=== PATIENT | female | born 1950 | race Caucasian/White ===

== ENCOUNTER 2022-06-16 12:18 | Emergency (ER) | payer MEDICAID, MEDICARE ==
[~2022-06-16] VITALS: Ht 162.6 cm; Wt 127.9 kg
--- NOTE | 2022-06-16 13:23 | NUR ---
BIB [facility] FROM HOME, UNABLE TO GET DIALYSIS TODAY SINCE INSURANCE WON'T COVER IT,LAST HD WAS 06/12/2022, PT HAS PORT ACCESS TO R CHEST. PT ATTACHED TO MONITOR, VITALS WITHIN NORMAL LIMITS, NO RESPIRATORY DISTRESS NOTED. AWAITING MD ORDERS.
--- NOTE | 2022-06-16 14:06 | NUR ---
IV ESTABLISHED RHAND 20G. LABS DRAWN AND COLLECTED AT BEDSIDE
[2022-06-16 14:25] LABS: BASOPHILS % (AUTO) 0.5 % (0.0-2.0); EOSINOPHILS % (AUTO) 1.8 % (0.0-6.0); HEMATOCRIT 25 % (33-45); HEMOGLOBIN 8.3 g/dL (11.5-14.8); LYMPHOCYTES # (AUTO) 2.3 K/uL (0.8-4.8); LYMPHOCYTES % (AUTO) 32.5 % (20.0-44.0); MEAN CORPUSCULAR HGB CONC 33 g/dl (31.0-36.0); MEAN CORPUSCULAR VOLUME 106 fL (82-100); MONOCYTES # (AUTO) 0.6 K/uL (0.1-1.30); MONOCYTES % (AUTO) 7.8 % (2.0-12.0); NEUTROPHILS # (AUTO) 4.1 K/uL (1.8-8.9); NEUTROPHILS % (AUTO) 57.4 % (43.0-81.0); PLATELET COUNT (AUTO) 280 K/uL (150-450); RED BLOOD CELL COUNT(AUTO) 2.37 MIL/uL (4.0-5.2); WHITE BLOOD COUNT (AUTO) 7.1 K/uL (4.3-11.0)
[2022-06-16 15:12] LABS: ALANINE AMINOTRANSFERASE 13 U/L (12-78); ALKALINE PHOSPHATASE 95 U/L (46-116); ASPARTATE AMINOTRANSFERASE 18 U/L (15-37); BILIRUBIN,DIRECT 0.1 mg/dL (0.0-0.2); BILIRUBIN,TOTAL 0.2 mg/dL (0.2-1.0); CALCIUM, SERUM 8.3 mg/dL (8.5-10.1); CARBON DIOXIDE 29 mmol/L (21-32); CHLORIDE 107 mmol/L (98-107); CREATININE 2.3 mg/dL (0.6-1.3); GLUCOSE 163 mg/dL (74-106); POTASSIUM 3.9 mmol/L (3.5-5.1); SODIUM SERUM 141 mmol/L (136-145); TOTAL PROTEIN, SERUM 6.7 g/dL (6.4-8.2); UREA NITROGEN, BLOOD 35 mg/dL (7-18)
[2022-06-16] MEDS ORDERED: SITA100T PO (15:37)
[2022-06-16] MEDS ORDERED: SUMA100T16 PO (15:37)
[2022-06-16] MEDS ORDERED: AMLO-212 PO (15:37)
[2022-06-16] MEDS ORDERED: IPRA12.9 INH (15:37)
[2022-06-16] MEDS ORDERED: INSU100I26 SQ (15:37)
[2022-06-16] MEDS ORDERED: HYDR-3972 PO (15:37)
[2022-06-16] MEDS ORDERED: HEPA50008 SQ (15:37)
[2022-06-16] MEDS ORDERED: HYDR-4076 PO (15:37)
[2022-06-16] MEDS ORDERED: PANT40TA49 PO (15:37)
[2022-06-16] MEDS ORDERED: METO25TA4 PO (15:37)
[2022-06-16] MEDS ORDERED: ATOR40TA PO (15:37)
[2022-06-16] MEDS ORDERED: DOCU-141 PO (15:37)
[2022-06-16] MEDS ORDERED: INSU100I47 SQ (15:37)
[2022-06-16] MEDS ORDERED: ALBU18HF2 IH (15:37)
--- NOTE | 2022-06-16 16:23 | NUR ---
[facility] CALLED FOR TRANSPORT, ETA 9PM
--- NOTE | 2022-06-16 16:25 | NUR ---
[facility] [phone]) [phone] TO LET THEM KNOW PT [place] [id number] [facility] [id number]
--- NOTE | 2022-06-16 16:32 | NUR ---
[facility]SPORTATION WILL BE HER BETWEEN 90-120 MINUTES
[2022-06-16 17:12] LABS: BAND % (MANUAL) 1 % (0.0-5.0); EOSINOPHILS % (MANUAL) 1 % (0-4); LYMPHOCYTES % (MANUAL) 24 % (16-48); MONOCYTES % (MANUAL) 6 % (0-11.0); NEUTROPHILS % (MANUAL) 68 (42-76)
[2022-06-17 03:59] VITALS: BP 121/71
== END 2022-06-16 19:00 ==
LOC: ER 12:22
DX: I12.0 Hypertensive chronic kidney disease with stage 5 chronic kidney disease or end stage renal disease (principal); E11.22 Type 2 diabetes mellitus with diabetic chronic kidney disease; N18.6 End stage renal disease; Z99.2 Dependence on renal dialysis; Z91.15 Patient's noncompliance with renal dialysis; R06.02 Shortness of breath; Z20.822 Contact with and (suspected) exposure to COVID-19
CPT/HCPCS: 99285; 71045; 87426; 93005; 85025; 80048; 80076; 36415; 84484; 83880; 82962; 85007; C9803

== ENCOUNTER → 2024-12-20 | Emergency (ER) | payer MEDICARE, OTHER ==
[~2024-12-20] VITALS: Ht 162.6 cm; Wt 127.9 kg
[~2024-12-20] MED LIST: ALBU18HF2 IH; AMLO-212 PO; ATOR40TA PO; DOCU-141 PO; HEPA50008 SQ; HYDR-3972 PO; HYDR-4076 PO; INSU100I26 SQ; INSU100I47 SQ; IPRA12.9 INH; METO25TA4 PO; ONDANSETRON HCL/PF 4 MG/2 ML VIAL ONE; PANT40TA49 PO; POLY17PO4 PO; SITA100T PO; SUMA100T16 PO
[2024-12-20 02:17] VITALS: TEMP 98.3
[2024-12-20 04:06] LABS: BASOPHILS % (AUTO) 0.3 % (0.0-2.0); EOSINOPHILS # (AUTO) 0.2 K/uL (0.0-0.7); HEMATOCRIT 32 % (33-45); HEMOGLOBIN 10.7 g/dL (11.5-14.8); LYMPHOCYTES % (AUTO) 24.3 % (20.0-44.0); MEAN CORPUSCULAR HEMOGLOBIN 32 PG (26.0-33.0); MEAN CORPUSCULAR HGB CONC 33 g/dl (31.0-36.0); MEAN CORPUSCULAR VOLUME 98 fL (82-100); MONOCYTES # (AUTO) 0.5 K/uL (0.1-1.30); MONOCYTES % (AUTO) 6.1 % (2.0-12.0); NEUTROPHILS # (AUTO) 5.5 K/uL (1.8-8.9); NEUTROPHILS % (AUTO) 66.3 % (43.0-81.0); PLATELET COUNT (AUTO) 251 K/uL (150-450); RED BLOOD CELL COUNT(AUTO) 3.32 MIL/uL (4.0-5.2); RED CELL DISTRIBUTION WIDTH 14.4 % (11.5-15.0); WHITE BLOOD COUNT (AUTO) 8.3 K/uL (4.3-11.0)
[2024-12-20 04:18] LABS: CALCIUM, SERUM 8.5 mg/dL (8.5-10.1); CREATININE 4.3 mg/dL (0.6-1.3); POTASSIUM 4.2 mmol/L (3.5-5.1)
[2024-12-20 04:30] LABS: ALBUMIN 2.5 g/dL (3.4-5.0); BILIRUBIN,TOTAL 0.3 mg/dL (0.2-1.0); TOTAL PROTEIN, SERUM 6.9 g/dL (6.4-8.2)
[2024-12-20] MEDS: ONDANSETRON HCL/PF - ER 4 MG/2 ML VIAL IV ONE (05:59)
[2024-12-20] MEDS: MORPHINE SULFATE INJ 2 MG/ML DISP.SYRIN IV ONE (05:59)
[2024-12-20 08:25] VITALS: BP 116/82; O2SAT 96
== END | disposition home or self-care (01) ==
LOC: ER 02:24
DX: R10.9 Unspecified abdominal pain (principal); R30.0 Dysuria; I12.0 Hypertensive chronic kidney disease with stage 5 chronic kidney disease or end stage renal disease; E11.22 Type 2 diabetes mellitus with diabetic chronic kidney disease; N18.6 End stage renal disease; Z79.84 Long term (current) use of oral hypoglycemic drugs; Z79.899 Other long term (current) drug therapy; Z90.49 Acquired absence of other specified parts of digestive tract; Z99.2 Dependence on renal dialysis
CPT/HCPCS: 99285; 74176; 71045; 93005; 85025; 87040; 83690; 36415; 80053; 84484; 83880; J2405 ×2

== ENCOUNTER 2024-12-26 19:41 | Emergency (ER) | payer MEDICARE, OTHER ==
[~2024-12-26] VITALS: Ht 172.7 cm; Wt 99.8 kg
[~2024-12-26 19:41] MED LIST changes: -ONDANSETRON HCL/PF 4 MG/2 ML VIAL ONE
[2024-12-26 19:48] VITALS: BP 92/50; TEMP 98.6; O2SAT 97
[2024-12-26 20:16] LABS: BASOPHILS # (AUTO) 0.1 K/uL (0.0-0.2); BASOPHILS % (AUTO) 0.6 % (0.0-2.0); EOSINOPHILS # (AUTO) 0.3 K/uL (0.0-0.7); EOSINOPHILS % (AUTO) 3.4 % (0.0-6.0); HEMATOCRIT 35 % (33-45); HEMOGLOBIN 11.5 g/dL (11.5-14.8); LYMPHOCYTES % (AUTO) 30.8 % (20.0-44.0); MEAN CORPUSCULAR HEMOGLOBIN 32 PG (26.0-33.0); MEAN CORPUSCULAR HGB CONC 33 g/dl (31.0-36.0); MEAN CORPUSCULAR VOLUME 97 fL (82-100); MONOCYTES # (AUTO) 0.6 K/uL (0.1-1.30); MONOCYTES % (AUTO) 6.3 % (2.0-12.0); NEUTROPHILS # (AUTO) 5.7 K/uL (1.8-8.9); NEUTROPHILS % (AUTO) 58.9 % (43.0-81.0); PLATELET COUNT (AUTO) 337 K/uL (150-450); RED BLOOD CELL COUNT(AUTO) 3.61 MIL/uL (4.0-5.2); RED CELL DISTRIBUTION WIDTH 14.3 % (11.5-15.0); WHITE BLOOD COUNT (AUTO) 9.6 K/uL (4.3-11.0)
[2024-12-26 20:19] LABS: CALCIUM, SERUM 8.4 mg/dL (8.5-10.1); CARBON DIOXIDE 27 mmol/L (21-32); CHLORIDE 100 mmol/L (98-107); CREATININE 3.2 mg/dL (0.6-1.3); GLUCOSE 181 mg/dL (74-106); POTASSIUM 4.3 mmol/L (3.5-5.1); SODIUM SERUM 132 mmol/L (136-145); UREA NITROGEN, BLOOD 23 mg/dL (7-18)
[2024-12-26 20:26] LABS: ALANINE AMINOTRANSFERASE 9 U/L (12-78); ALBUMIN 2.3 g/dL (3.4-5.0); ALKALINE PHOSPHATASE 118 U/L (46-116); ASPARTATE AMINOTRANSFERASE 17 U/L (15-37); BILIRUBIN,DIRECT 0.1 mg/dL (0.0-0.2); BILIRUBIN,TOTAL 0.2 mg/dL (0.2-1.0); LIPASE 26 U/L (16-77); TOTAL PROTEIN, SERUM 7.3 g/dL (6.4-8.2)
[2024-12-26 20:30] LABS: APPEARANCE,URINE CLOUDY (CLEAR); BILIRUBIN,URINE Negative (NEGATIVE); BLOOD, URINE Moderate Ery/uL (NEGATIVE); COLOR,URINE YELLOW (YELLOW); KETONES,URINE Negative (NEGATIVE); LEUKOCYTE ESTERASE ,URINE Large (NEGATIVE); NITRITE, URINE NEGATIVE (NEGATIVE); PH,URINE 8.5 (5.0-8.0); PROTEIN,URINE >=300 mg/dl (NEGATIVE); UGLUCOSE Negative (NEGATIVE); UROBILINOGEN,URINE 0.2 EU/dL (0.2)
[2024-12-26 20:31] LABS: ADD URINE CULTURE YES; BACTERIA,URINE 1+ /HPF (None Seen); CALCIUM OXALATE CRYSTALS,UR Few /HPF (None Seen); SQUAMOUS EPITHELIAL CELL,UR Moderate /HPF (None Seen); URINE AMORPHOUS PHOSPHATES Moderate /HPF (None Seen); WBC,URINE 21-50 /HPF (0-3)
[2024-12-26] MEDS: IV NS 0.9% 1,000 ML BAG IV ONE (20:39)
[2024-12-26] MEDS ORDERED: CEFTRIAXONE 1GM BAG (ER ONLY) 50 ML IV ONE (20:42)
[2024-12-26] MEDS ORDERED: HYDROCODONE/APAP 5/325MG TABLET ONE (20:43)
[2024-12-26] MEDS: HYDROCODONE/APAP 5/325MG TABLET PO ONE (20:44)
[2024-12-26] MEDS ORDERED: CEPH-570 PO (20:44)
[2024-12-26] MEDS: CEFTRIAXONE 1GM BAG (ER ONLY) 1 GM/50 ML PIGGYBACK IV ONE (20:44)
[2024-12-26] MEDS ORDERED: KETOROLAC TROMETHAMINE INJ 30 MG/ML VIAL IV ONE (21:00)
== END 2024-12-26 21:40 ==
LOC: ER 19:44
DX: N39.0 Urinary tract infection, site not specified (principal); I12.0 Hypertensive chronic kidney disease with stage 5 chronic kidney disease or end stage renal disease; E11.22 Type 2 diabetes mellitus with diabetic chronic kidney disease; N18.6 End stage renal disease; K59.00 Constipation, unspecified; Z79.84 Long term (current) use of oral hypoglycemic drugs; Z79.899 Other long term (current) drug therapy; Z99.2 Dependence on renal dialysis
CPT/HCPCS: 99284; 96365; 51701; 85025; 80048; 87077; 87086; 83690; 80076; 87186 ×2; 81001; 36415; J7030; J0696